=== PATIENT | female | born 1955 | race Caucasian/White ===

== ENCOUNTER 2019-05-10 16:58 | Emergency (ER) | payer OTHER ==
[~2019-05-10] VITALS: Ht 180.3 cm; Wt 97.7 kg
[2019-05-10 17:11] VITALS: BP 168/83; TEMP 97.6
[2019-05-10] MEDS ORDERED: ASPIRIN 81M81 MG/TA2 PO (18:19)
[2019-05-10] MEDS ORDERED: IBU800 M1 PO (18:19)
[2019-05-10] MEDS ORDERED: ZOLOFT 50MG50 MG PO (18:20)
[2019-05-10] MEDS ORDERED: MACRODANTIN100 PO (18:20)
[2019-05-10] MEDS ORDERED: CINNAMON500 MG (18:21)
[2019-05-10] MEDS ORDERED: FLONASEALLERGY NS (18:21)
[2019-05-10] MEDS ORDERED: OMEGA-3 1000 MG1 CAP PO (18:21)
[2019-05-10] MEDS ORDERED: XYZAL5 MG PO (18:21)
[2019-05-10 20:01] VITALS: PULSE 78
== END 2019-05-10 20:01 | disposition home or self-care (01) ==
LOC: COL.ER 16:58
DX: S93.402A Sprain of unspecified ligament of left ankle, initial encounter (principal); S40.012A Contusion of left shoulder, initial encounter; E11.9 Type 2 diabetes mellitus without complications; Z79.51 Long term (current) use of inhaled steroids; Z88.2 Allergy status to sulfonamides; X50.1XXA Overexertion from prolonged static or awkward postures, initial encounter; W01.0XXA Fall on same level from slipping, tripping and stumbling without subsequent striking against object, initial encounter; Y92.838 Other recreation area as the place of occurrence of the external cause